=== PATIENT | male | born 1990 | race Caucasian/White ===

== ENCOUNTER 2020-11-18 12:39 | Emergency (ER) | payer OTHER, SELFPAY ==
[2020-11-18 12:59] VITALS: BP 164/102; PULSE 82; RESP 18; TEMP 36.4; O2SAT 100
[2020-11-18 15:11] VITALS: BP 153/116; PULSE 78; RESP 18; TEMP 36.9; O2SAT 100
--- NOTE | 2020-11-18 16:09 | ED.GENADULT ---
HPI - General Adult General Chief complaint: Unspecified Stated complaint: facial swelling Time Seen by Provider: 11/18/20 15:14 Source: patient Mode of arrival: ambulatory Limitations: no limitations History of Present Illness HPI narrative: Patient presents for evaluation of swelling beneath the left eye that started yesterday. 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 He noted a herpetic-like rash to the left side of his forehead last Friday. He went to urgent care on 11/15/2020 and they gave him a prescription for acyclovir to take 5 times per day. He states that he normally takes Valtrex when this occurs twice daily and preferred to take that medication. Yesterday he noted some mild swelling beneath the left eye and contacted he contacted a virtual health provider today to determine whether it was possible for him to take Benadryl with his acyclovir. During that consultation he advised he come to the emergency department for further evaluation. He denies any blurred vision, diplopia, drainage, redness. He states that herpetic rash is improving on acyclovir. Who prefer to be changed to valacyclovir and is requesting a prescription for Benadryl. States pain in the area of the rash is near resolved. Related Data Home Medications Medication Instructions Recorded Confirmed acyclovir 11/18/20 Allergies Allergy/AdvReac Type Severity Reaction Status Date / Time No Known Allergies Allergy Verified 11/18/20 15:17 Review of Systems Review of Systems: CONSTITUTIONAL: Denies fever, chills, or sweats. EYES: Reports swelling beneath the left eye. Denies visual changes, redness, or discharge. ENT: Denies rhinorrhea, congestion, sore throat, or otalgia. CARDIOVASCULAR: Denies chest pain, palpitations, or edema. RESPIRATORY: Denies cough or dyspnea. GASTROINTESTINAL: Denies abdominal pain, nausea, vomiting, or diarrhea. GENITOURINARY: Denies dysuria or hematuria. SKIN: Reports healing rash to the left side of his forehead. MUSCULOSKELETAL: Denies back pain, joint pain, or myalgia. NEUROLOGIC: Denies headache, numbness, dizziness, or weakness. PSYCHIATRIC: Denies anxiety or depression. [facility] Past Medical History Medical History (Updated 11/18/20 @ 16:17 by Art Schultz [facility], ) History of tear of ACL (anterior cruciate ligament) History of tear of meniscus of knee joint Surgical History Surgical History History of repair of ACL Family History Family History Mother No pertinent past medical history Social History Social History Smoking status: Never smoker Alcohol intake: current Alcohol use details: social Substance use: never Additional living arrangements comments: lives with fiance Gender identity (if verbalized by the patient): Male Sexual Orientation (if Verbalized by the Patient): Straight or Heterosexual Spiritual care concerns: No Exam Narrative: GENERAL: Well-appearing, well-nourished, and in no acute distress. HEAD: Normocephalic, atraumatic. EYES: PERRLA and EOMI. There is no drainage from left eye. There is no conjunctival injection or icterus ENT: Nares clear, no rhinorrhea or epistaxis. Mucous membranes moist. Oropharynx without tonsillar hypertrophy exudate or other lesions. Bilateral TMs pearly calabrese nonbulging NECK: Supple. No adenopathy or masses. No carotid bruits or JVD CHEST: Clear to auscultation. No respiratory distress. No wheezes rales or rhonchi HEART: Regular rate and rhythm. No murmur heard. Normal peripheral pulses. ABDOMEN: Soft, nontender, nondistended, normal active bowel sounds. EXTREMITIES: Normal range of motion. No edema. S
[2020-11-18 16:40] VITALS: BP 152/108; PULSE 71; RESP 18; TEMP 36.8; O2SAT 100
== END 2020-11-18 16:42 | disposition home or self-care (01) ==
PROVIDERS: Emergency Provider Nurse Practitioner; PCP Emergency Medicine
DX: B02.9 Zoster without complications (principal)
CPT/HCPCS: 99283

== ENCOUNTER 2022-06-29 22:10 | Emergency (ER) | payer OTHER, SELFPAY ==
--- NOTE | ~2022-06-29 | XR_ITS ---
EXAMINATION: XR finger 2nd RT min 2V DATE: 06/30/2022 00:37 INDICATION: Right hand second digit cat bite with pain and swelling. TECHNIQUE: 4 views of right hand second digit were obtained. COMPARISON: None. FINDINGS: Bone alignment is normal. No fracture. 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 IMPRESSION: 1. No fracture or radiopaque foreign body. Reviewed, dictated and finalized at location A.
[2022-06-29 22:21] VITALS: BP 165/105; PULSE 83; RESP 18; TEMP 36.3; O2SAT 97
--- NOTE | 2022-06-30 01:00 | ED.ANIMALBIT ---
HPI - Animal Bite General Chief Complaint: Animal Bite Stated Complaint: animal bite Time Seen by Provider: 06/30/22 00:23 Source: patient Mode of arrival: ambulatory Limitations: no limitations History of Present Illness HPI narrative: Patient is a 31-year-old male presents the ED with report of cat bite to his right hand. Patient reports his dogs got into a fight with his parents cat earlier last night, 06/29. He tried to break up the fight and sustained several scratches to his bilateral forearms and several puncture wounds to his right hand and second digit. Patient complains of pain and swelling particularly to his right second digit. Denies any other injuries. Denies numbness or tingling. Denies fever. Tetanus status unknown. Related Data Home Medications Medication Instructions Recorded Confirmed acyclovir 800 mg tablet 11/18/20 Allergies Allergy/AdvReac Type Severity Reaction Status Date / Time No Known Allergies Allergy Verified 11/18/20 15:17 Review of Systems Review of Systems: CONSTITUTIONAL: Denies fever, chills, or sweats. SKIN: See HPI. MUSCULOSKELETAL: See HPI. NEUROLOGIC: Denies tingling, numbness, or weakness. All systems reviewed & are unremarkable except as noted in HPI and below PMFSH Past Medical History Medical History (Updated 06/30/22 @ 01:01 by Jessica Singh PA-C) History of tear of ACL (anterior cruciate ligament) History of tear of meniscus of knee joint Surgical History Surgical History History of repair of ACL Family History Family History Mother No pertinent past medical history Social History Social History Smoking status: Never smoker Alcohol intake: current Alcohol use details: social Substance use: never Additional living arrangements comments: lives with fiance Gender identity (if verbalized by the patient): Male Sexual Orientation (if Verbalized by the Patient): Straight or Heterosexual Spiritual care concerns: No Exam Narrative: GENERAL: Well appearing, obese with BMI of 30.3, non-toxic, in no acute distress. HEAD: Normocephalic, atraumatic. NECK: Supple. No adenopathy, no masses. RESPIRATORY: Airway patent, respirations nonlabored. Clear to auscultation bilaterally, no rales, rhonchi, wheezing. CARDIOVASCULAR: Regular rate and rhythm without murmurs, rubs, or gallops. Radial pulses 2+ and equal bilaterally. MUSCULOSKELETAL: Mild limitation in range of motion of right second digit flexion due to pain and swelling. Mild swelling noted to right second digit. Several puncture wounds noted to right second digit on flexor and extensor surfaces, particularly two puncture wounds on either side of PIP joint on flexor surface. No active bleeding or drainage. 1 puncture wound noted to the palmar surface second MCP region. Sensation intact. SKIN: Warm, dry, normal color. No rashes. Scattered scratches to bilateral forearms, no deeper wounds or lacerations. No active bleeding or drainage. NEURO: A&O X3. Speech clear. Cranial nerves II-XII grossly intact. Steady gait. No ataxic movements. PSYCHIATRIC: Appropriate mood and affect. Normal interaction. Course Vital Signs Vital signs: Vital Signs Temperature 97.3 F L 06/29/22 22:21 Pulse Rate 83 06/29/22 22:21 Respiratory Rate 18 06/29/22 22:21 Blood Pressure 165/105 H 06/29/22 22:21 Pulse Oximetry 97 06/29/22 22:21 Oxygen Delivery Room Air 06/29/22 22:21 Temperature 97.3 F L 06/29/22 22:21 Pulse Rate 83 06/29/22 22:21 Respiratory Rate 18 06/29/22 22:21 Blood Pressure 165/105 H 06/29/22 22:21 Pulse Oximetry 97 06/29/22 22:21 Oxygen Delivery Room Air 06/29/22 22:21 MDM - Animal Bite MDM Narrative Medical decision making narrative: Patient present
[2022-06-30] MEDS: AMPICILLIN SULB 3 GM/NS 100 ML 3 GM/100 ML VIAL IVPB (01:26)
[2022-06-30] MEDS: TETANUS,DIPHTHERIA,AC PERTUSSIS ADULT (0.5 ML) BOOSTRIX IM (01:28)
== END 2022-06-30 02:07 | disposition home or self-care (01) ==
PROVIDERS: Emergency Provider Physician Assistant; PCP Family Medicine
DX: S61.451A Open bite of right hand, initial encounter (principal); Z23 Encounter for immunization; W55.01XA Bitten by cat, initial encounter
CPT/HCPCS: 73140; 90471; 90715; 96365; 99284; J0295

== ENCOUNTER 2024-10-11 17:54 | Emergency (ER) | payer OTHER, SELFPAY ==
--- OUTSIDE RECORDS SUMMARY | 2024-10-11 17:56 | XMS_ITS | Clinical Summary ---
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 Phone Unavailable Primary Care Provider Unavailabl e Immunizations Immunization Administration Dates Next Due (ADACEL/BOOSTRIX)(10 YR UP) TDAP VACCINE, 0.5ML, IM 07/31/2018 INFLUENZA VACCINE QUADRIVALENT 6 MOS UP PF IM ,12/01/2018 Social History Tobacco Use Types Packs/Day Years Used Date Smoking Tobacco: Never Assessed Sex and Gender Information Value Date Recorded Sex Assigned at Not on file Legal Sex Male 8:42 AM CDT Gender Identity Not on file Sexual Orientation Not on file Plan of Treatment Health Maintenance Due Date Last Done Comments HPV VACCINES (1 - Male 3-dose series) 09/16/2006 HEPATITIS B VACCINES (1 of 3 - 19+ 3-dose series) 09/16/2010 INFLUENZA VACCINE (#1) 2024 11/24/2019, 2018 DTAP/TDAP/TD VACCINES (2 - Td or Tdap) 07/31/2028 Insurance [facility]
--- OUTSIDE RECORDS SUMMARY | 2024-10-11 17:56 | XMS_ITS | Clinical Summary ---
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 Gender Identity Not on file Sexual Orientation Not on file Plan of Treatment Health Maintenance Due Date Last Done Comments Hepatitis C Virus (HCV) Screening 1991 TdaP Immunization 1991 Hepatitis B Immunization (1 of 3 - 19+ 3-dose series) 09/16/2010 Human Papillomavirus (HPV) Immunization (1 - 3-dose SCDM series) 09/16/2018 SARS-COV-2 Immunization ( - 2023- season) 2023 Influenza Immunization (#1) 2024 Respiratory Syncytial Virus (RSV) Immunization (Adult) (1 - 1-dose 75+ series) 09/16/2066 Meningococcal Immunization (ACWY) Aged Out No longer eligible based on patient's age to complete this topic Pneumococcal Immunization Combined Aged Out No longer eligible based on patient's age to complete this topic Rotavirus Immunization Aged Out No lo nger eligible based on patient's age to complete this topic Insurance [employer] on file
[2024-10-11 18:08] VITALS: BP 154/100; PULSE 77; RESP 18; TEMP 36.2; O2SAT 100
--- NOTE | 2024-10-11 19:32 | ED_ITS ---
HPI - Skin/Abscess/Foreign Bdy General Chief complaint: Skin/Abscess/Foreign Body Stated complaint: Skin Time Seen by Provider: 10/11/24 19:27 Source: patient and RN notes reviewed Mode of arrival: ambulatory Limitations: no limitations History of Present Illness HPI narrative: Patient presents today complaining of poison alejandrina after moving trees and brush 6 days ago. Rash occurred the next day and has been worsening since onset. He has been using a poison alejandrina wash and Benadryl without much improvement. He also thinks he got cut by some limbs to the posterior left lower leg as the surrounding skin has become very reddened and firm. Related Data Allergies Allergy/AdvReac Type Severity Reaction Status Date / Time No Known Allergies Allergy Verified 10/11/24 18:54 PMFSH Past Medical History Medical History History of tear of ACL (anterior cruciate ligament) History of tear of meniscus of knee joint Surgical History Surgical History History of repair of ACL Family History Family History Mother No pertinent past medical history Social History Social History Smoking status: Never smoker Alcohol intake: current Alcohol use details: social Substance use: never Additional living arrangements comments: lives with fiance Gender identity (if verbalized by the patient): Male Sexual Orientation (if Verbalized by the Patient): Straight or Heterosexual Spiritual care concerns: No Comments At time of signature, I have reviewed and agree with nursing past medical, s urgical, social and family history unless otherwise noted. Please see nursing chart for further information. There is no relevant family history pertinent to the presenting complaint Exam Narrative: GENERAL: Well-appearing, well-nourished, and in no acute distress. HEAD: Normocephalic, atraumatic. EYES: EOMI. No redness or drainage. Conjunctivae normal. ENT: Mucous membranes pink and moist. NECK: Normal AROM. CHEST: No respiratory distress. EXTREMITIES: Normal range of motion. No edema. SKIN: Warm, dry. Capillary refill normal. Normal skin turgor. Scattered erythematous maculopapular rash over all 4 extremities. Patchy erythema with some abrasions in the center measuring approximately 6 x 12 cm to the posterior left lower leg that is slightly indurated. No fluctuance or drainage. NEURO: No focal deficits. Alert and oriented x3. Gait steady. PSYCH: Normal affect. No signs of depression or anxiety. Course Course Level of Care: Express Care Visit Vital Signs Vital signs: Vital Signs Temperature 97.2 F L 10/11/24 18:08 Pulse Rate 77 10/11/24 18:08 Respiratory Rate 18 10/11/24 18:08 Blood Pressure 154/100 H 10/11/24 18:08 Pulse Oximetry 100 10/11/24 18:08 Oxygen Delivery Room Air 10/11/24 18:08 Temperature 97.2 F L 10/11/24 18:08 Pulse Rate 77 10/11/24 18:08 Respiratory Rate 18 10/11/24 18:08 Blood Pressure 154/100 H 10/11/24 18:08 Pulse Oximetry 100 10/11/24 18:08 Oxygen Delivery Room Air 10/11/24 18:08 Reviewed MDM - Skin/Abscess/Foreign Bdy MDM Narrative Medical decision making narrative: 34-year-old man presents today with a 5 day history of pruritic rash to all 4 extremities after moving trees and brush the day prior. He has tried some OTC treatment without much improvement. He is also complaining of a reddened area to the left posterior lower leg, believing he may have gotten scratched by some of the trees he was moving. Upon exam, patient has widespread erythematous maculopapular rash over his extremities and a 6 x 12 cm area of erythema with some abrasions in the center to the posterior left lower leg, consistent with cellulitis. Patient will be treated with a course of prednisone for the contact dermatitis and Keflex for the cellulitis. Vital signs stable, blood pressure a bit elevated. Recommend continuing a daily antihistamine such as Zyrtec instead of Benadryl due to sedation effect. Patient agrees with plan. Anticipatory guidance given. Differential Diagnosis Differential diagnosis: Likely abscess of skin or subcutaneous tissue, cellulitis, impetigo and contact dermatitis Critical Care Time Critical Care Time Critical Care Time: No Discharge Plan Discharge Clinical Impression: Contact dermatitis Qualifiers: Contact dermatitis type: unspecified Contact dermatitis trigger: unspecified trigger Qualified Code(s): L25.9 - Unspecified contact dermatitis, unspecified cause Cellulitis Qualifiers: Site of cellulitis: extremity Site of cellulitis of extremity: lower extremity Laterality: left Qualified Code(s): L03.116 - Cellulitis of left lower limb Patient Disposition: Home Condition: Stable Instructions: Antibiotic Form, Contact Dermatitis (DC), Cellulitis (ED) Additional Instructions: Please take the prednisone and Keflex as prescribed. Consider starting a daily antihistamine such as Zyrtec, Claritin, or Emely to help with your itching instead of the Benadryl. Follow-up with your PCP in 3 days if symptoms are not improving. Your blood pressure was elevated above 120/80 today at Urgent Care. This puts you above the threshold for follow up. Please schedule a followup visit with your personal physician as soon as possible, for further evaluation and treatment. Even blood pressure exceeding 120/80 may indicate pre-hypertension. Patient Language: Hungarian Prescriptions: New prednisone 10 mg tablet See Rx Instructions .ROUTE .COMPLEX Qty: 42 0RF Rx Instructions: 5 tabs daily x3 days,then 4 tabs daily x3 days,then 3 tabs daily x3 days,then 2 tabs daily x3 days cephalexin 500 mg capsule 500 mg PO Q6H 7 Days Qty: 28 0RF No Action diphenhydramine HCl [Benadryl] 25 mg capsule 25 - 50 mg PO Q6H PRN (Reason: allergy symptoms) Qty: 20 0RF Follow-up/Referrals: Nasir,MD Geraldo [Primary Care Provider] - Time of Disposition: 19:39
== END 2024-10-11 19:42 | disposition home or self-care (01) ==
PROVIDERS: Emergency Provider Nurse Practitioner; PCP Family Medicine
DX: L25.9 Unspecified contact dermatitis, unspecified cause (principal); L03.116 Cellulitis of left lower limb
CPT/HCPCS: 99213; G0463